=== PATIENT | female | born 1970 | race African-American/Black ===

== ENCOUNTER 2017-09-10 14:14 | Emergency (ER) | payer MEDICARE, MEDICAID ==
[~2017-09-10] VITALS: Ht 157.5 cm; Wt 76.7 kg
[~2017-09-10 14:14] MED LIST: CARBAMAZEPINE200 M2 PO; CLARITIN10 MG PO; DEPO-PROVE150 MG/1 M IM; ENULOSE10 GM/15 M PO; FLEXERIL PO; KEFLEX500 MG PO; LIORESAL 10 MG10 MG PO; LOPERAMIDE 2 MG2 M1 PO; OXYBUTYNIN 5 MG5 M2 PO; PREDNISONE50 MG PO; PROTONIX40 M1 PO; SEROQUEL 50 MG50 MG PO; TOPROL XL50 MG PO; TYLENOL325 MG PO; VENTOLIN HFA 1818 GM INH; ZPAK PO
[2017-09-10] MEDS ORDERED: SEROQUEL 25 MG25 M1 PO (14:25)
[2017-09-10 16:05] LABS: ANION GAP 10 mmol/L (7-16); BUN 9 mg/dL (7-18); CALCIUM 8.5 mg/dL (8.5-10.1); CHLORIDE 109 mmol/L (98-107); CO2 25 mmol/L (21-32); CREATININE 0.6 mg/dL (0.6-1.3); GLUCOSE 115 mg/dL (70-99); POTASSIUM 3.7 mmol/L (3.5-5.1); SODIUM 144 mmol/L (136-145)
[2017-09-10 16:10] LABS: ALBUMIN 3.2 g/dL (3.4-5.0); ALKALINE PHOSPHATASE 111 U/L (46-116); SGOT 18 U/L (15-37); SGPT 31 U/L (30-65); TOTAL BILIRUBIN < 0.1 mg/dL (<0.1-1.0); TOTAL PROTEIN 6.1 g/dL (6.4-8.2)
[2017-09-10 16:25] VITALS: BP 136/95
== END 2017-09-10 16:26 | disposition home or self-care (01) ==
LOC: M.ERS 14:14
PROVIDERS: Nurse Practitioner
DX: T17.890A Other foreign object in other parts of respiratory tract causing asphyxiation, initial encounter (principal); R05 Cough; F31.9 Bipolar disorder, unspecified; X58.XXXA Exposure to other specified factors, initial encounter; Y93.89 Activity, other specified; Y92.89 Other specified places as the place of occurrence of the external cause; Y99.8 Other external cause status